=== PATIENT | male | born 1955 | race Caucasian/White ===

== ENCOUNTER 2023-06-16 06:51 | Day surgery (SDC) | payer MEDICARE, SELFPAY ==
[2023-06-16 07:39] VITALS: BMI 43.1
[2023-06-16] MEDS: SODIUM CHLORIDE 0.9 % (FLUSH) 10 ML SYRINGE IVF (08:09)
[2023-06-16 08:11] VITALS: BP 113/80; PULSE 90; RESP 16; TEMP 36.7; O2SAT 90
[2023-06-16] MEDS: LACTATED RINGERS 1000 ML 1,000 ML 100 ML IV (08:11)
--- NOTE | 2023-06-16 08:45 | XR_ITS ---
Patient: DAY SULTANA Facility:?[facility] Patient ID:?[id number] Site Patient ID:?[id number]. Site :?[id number] Study:?XRay-Extremity Right FOOT-06/16/2023 9:48:07 AM Ordering Physician:LIZZ Final Report: Indication: EXCISION RT Sesamoid Technique: One fluoroscopic image of the right foot. Fluoroscopic time 5.6 seconds. IMPRESSION: Fluoroscopic guidance for sesamoid bone resection. Dictated by William Garcia MD @ 06/16/2023 10:15:47 AM Signed by:?William Garcia MD @06/16/2023 10:15:47 AM (Electronic Signature)
[2023-06-16] MEDS: BUPIVACAINE 0.5% 30 ML INJECTION (08:55)
[2023-06-16] MEDS: CEFAZOLIN 2 GM INJ IVP (08:56)
[2023-06-16 09:50] VITALS: BP 92/72; PULSE 91; RESP 16; TEMP 36.3; O2SAT 93
[2023-06-16 10:00] VITALS: BP 113/71; PULSE 90; RESP 18; O2SAT 93
--- NOTE | 2023-06-16 10:00 | W.PODPROC_ITS ---
Date of Procedure: 06/16/23 Surgeon: Khurram Orozco DPM Pre-op Diagnosis: Fibular sesamoid fracture right foot Post-op Diagnosis: Fibular sesamoid fracture right foot Type of Procedure: Sesamoidectomy right foot Indications: Patient has had painful nonunion of a sesamoid fracture not relieved with nonsurgical care. He has elected to proceed with surgical excision. I reviewed the procedure, recovery, expectations and potential complications. These include but are not limited to: Poor wound healing, infection, scarring, continued pain, potential need for future surgery, deep venous thrombosis, pulmonary embolism and . All questions answered written consent was obtained. Site marked. Procedure Description: Patient brought the operating room placed supine position on operating table. IV sedation was initiated local anesthetic injected into the right foot. He was prepped and draped in sterile fashion. Standard time-out protocol followed. The right foot was exsanguinated the tourniquet inflated to 250 mm Hg. Linear incision was made just lateral to the fibular sesamoid in the plantar foot. Incision was carried down through skin subcutaneous tissues. Small area of the plantar fascia was incised and the underlying sesamoid identified. Linear incision was made through the flexor brevis tendon and the fibular sesamoid was shelled out from the tendon. Great care was taken to preserve the flexor hallucis longus tendon. The fibular sesamoid was clearly fractured it was removed in total with all fracture fragments account for. Wound was thoroughly irrigated normal sterile saline. Hallucis Brevis tendon and joint capsule was r epaired with 3-0 Vicryl. Skin was closed with 3-0 nylon. Sterile dressing was applied. Tourniquet was released and normal capillary fill time returned all digits. He was transferred from OR to PACU vital signs stable and vascular status intact. He will be discharged per same-day protocol. He is given oxycodone for pain. He is heel weight-bearing with cane or crutches. He will follow up in clinic in 2 days. Both written and verbal postop instructions given. Anesthesia: MAC and local Hemostasis: ankle Estimated blood loss (mL): 2 Specimens: none sent Disposition: same day
--- NOTE | 2023-06-16 10:12 | W.ANESCHARGE ---
Anesthesia Charges Start Date/Time Anesthesia Start Date: 06/16/23 Anesthesia Start Time: 08:49 Stop Date/Time Anesthesia Stop Date: 06/16/23 Anesthesia Stop Time: 09:54
[2023-06-16 10:15] VITALS: BP 93/59; PULSE 91; RESP 16; O2SAT 96
[2023-06-16 10:45] VITALS: BP 98/48; PULSE 92; RESP 16; O2SAT 96
== END 2023-06-16 11:11 | disposition home or self-care (01) ==
PROVIDERS: Visit Provider Podiatrist
PROC: (CPT 28315; principal; 2023-06-16 08:45)
DX: S92.811A Other fracture of right foot, initial encounter for closed fracture (principal); E11.9 Type 2 diabetes mellitus without complications
CPT/HCPCS: 28315; 01480; 73620; 76000; 82962; J0665; J0690; J7120